=== PATIENT | female | born 1995 | race Caucasian/White ===

== ENCOUNTER 2018-01-23 20:17 | Emergency (ER) | payer BC ==
--- NOTE | 2018-01-23 22:20 | ER Document Report ---
ED Medical Screen (RME) - General Chief Complaint: Lower Abdominal Pain Stated Complaint: ABDOMINAL PAIN Time Seen by Provider: 01/23/18 22:18 Mode of Arrival: Ambulatory Information source: Patient Notes: Patient presents complaining of 5 day history of suprapubic pain. Patient states pain has been constant but occasionally is sharp in nature. Patient states that up until yesterday she had diarrhea multiple episodes each day. Patient states symptoms did start after eating at [employer] restaurant. Patient denies any fever, nausea, vomiting, urinary symptoms or vaginal discharge. Patient states she took a negative home test, although is 1 week late. I have greeted and performed a rapid initial assessment of this patient. A comprehensive ED assessment and evaluation of the patient, analysis of test results and completion of the medical decision making process will be conducted by additional ED providers. TRAVEL OUTSIDE OF THE [place] IN LAST 30 DAYS: No - Related Data Allergies/Adverse Reactions: codeine Allergy (Verified 01/23/18 20:35) Penicillins Allergy (Verified 01/23/18 20:35) Physical Exam - Vital signs Vitals: Temp Pulse Resp BP Pulse Ox 98.3 F 77 18 119/76 96 01/23/18 20:38 01/23/18 20:38 01/23/18 20:38 01/23/18 20:38 01/23/18 20:38 - Abdominal Tenderness: Tender - Suprapubic Course - Vital Signs Vital signs: Temp Pulse Resp BP Pulse Ox 98.3 F 77 18 119/76 96 01/23/18 20:38 01/23/18 20:38 01/23/18 20:38 01/23/18 20:38 01/23/18 20:38
[2018-01-23 22:49] LABS: ABSOLUTE EOSINOPHILS # (AUTO) 0.2 10^3/uL (0.0-0.6); ABSOLUTE LYMPHOCYTES (AUTO) 2.9 10^3/uL (0.5-4.7); ABSOLUTE MONOCYTES (AUTO) 0.6 10^3/uL (0.1-1.4); ABSOLUTE NEUT (AUTO) 1.7 10^3/uL (1.7-8.2); BASOPHILS % (AUTO) 0.3 % (0-2); EOSINOPHILS % (AUTO) 3.1 % (0-6); HEMOGLOBIN 12.6 g/dL (12.0-15.5); LYMPHOCYTES % (AUTO) 53.9 % (13-45); MEAN CORPUSCULAR HEMOGLOBIN 29.7 pg (27.0-33.4); MEAN CORPUSCULAR VOLUME 87 fl (80-97); MONOCYTES % (AUTO) 10.7 % (3-13); PLATELET COUNT 244 10^3/uL (150-450); RED BLOOD COUNT 4.24 10^6/uL (3.72-5.28); RED CELL DISTRIBUTION WIDTH 13.3 % (11.5-14.0); TOTAL CELLS COUNTED % (AUTO) 100 %; WHITE BLOOD COUNT 5.4 10^3/uL (4.0-10.5)
[2018-01-23 23:04] LABS: ALANINE AMINOTRANSFERASE 24 U/L (9-52); ALBUMIN 4.4 g/dL (3.5-5.0); ALKALINE PHOSPHATASE 48 U/L (38-126); ANION GAP 8 (5-19); ASPARTATE AMINO TRANSFERASE 20 U/L (14-36); BILIRUBIN,TOTAL 0.6 mg/dL (0.2-1.3); BLOOD UREA NITROGEN 11 mg/dL (7-20); CALCIUM 9.7 mg/dL (8.4-10.2); CARBON DIOXIDE 27 mmol/L (22-30); CHLORIDE 104 mmol/L (98-107); GLUCOSE 85 mg/dL (75-110); POTASSIUM 3.9 mmol/L (3.6-5.0); SODIUM 139.2 mmol/L (137-145); TOTAL PROTEIN 7.1 g/dL (6.3-8.2)
[2018-01-24 00:23] LABS: AMORPHOUS SEDIMENT,URINE 1+ /HPF; APPEARANCE,URINE TURBID; BILIRUBIN,URINE NEGATIVE (NEGATIVE); COLOR,URINE YELLOW; GLUCOSE, URINE NEGATIVE (NEGATIVE); KETONES,URINE NEGATIVE (NEGATIVE); LEUKOCYTE ESTERASE,URINE NEGATIVE (NEGATIVE); NITRITE,URINE NEGATIVE (NEGATIVE); PROTEIN,URINE NEGATIVE (NEGATIVE); URINE SPECIFIC GRAVITY 1.019; UROBILINOGEN,URINE NEGATIVE mg/dL (<2.0)
--- NOTE | 2018-01-24 00:26 | ER Document Report ---
ED GI/ - General Chief Complaint: Lower Abdominal Pain Stated Complaint: ABDOMINAL PAIN Time Seen by Provider: 01/23/18 22:18 Mode of Arrival: Ambulatory Information source: Patient TRAVEL OUTSIDE OF THE [place] IN LAST 30 DAYS: No - HPI Patient complains to provider of: Abdominal pain, Diarrhea Onset: Last week Timing/Duration: Sudden Quality of pain: Cramping Severity at maximum: Moderate Severity in ED: Mild Context: Bad food - POSSIBLY @ [employer] ELSEWHERE Location: Other - [facility] Vaginal bleeding (Compared to normal period): None Menstrual period history: denies: Abnormal, Irregular, - ON OCP's Sexual history: Active, control pills Associated symptoms: Diarrhea. denies: Chills, Fever, Urinary frequency, Urinary urgency, Vaginal discharge, Vomiting Exacerbated by: Food Relieved by: Denies Similar symptoms previously: No Recently seen / treated by doctor: No - Related Data Allergies/Adverse Reactions: codeine Allergy (Verified 01/23/18 20:35) Penicillins Allergy (Verified 01/23/18 20:35) Past Medical History - General Information source: Patient - Social History Smoking Status: Unknown if Ever Smoked Frequency of alcohol use: None Drug Abuse: None Lives with: Spouse/Significant other Family History: Reviewed & Not Pertinent Patient has suicidal ideation: No Patient has homicidal ideation: No - Past Medical History Cardiac Medical History: Reports: None Pulmonary Medical History: Reports: None EENT Medical History: Reports: None Neurological Medical History: Reports: None Endocrine Medical History: Reports: None Renal/ Medical History: Reports: None Malignancy Medical History: Reports: None GI Medical History: Reports: None Musculoskeltal Medical History: Reports None Psychiatric Medical History: Reports: None Traumatic Medical History: Reports: None Past Surgical History: Reports: Hx Tonsillectomy Review of Systems - Review of Systems Constitutional: No symptoms reported. denies: Chills, Fever EENT: No symptoms reported Cardiovascular: No symptoms reported Respiratory: No symptoms reported Gastrointestinal: See HPI Genitourinary: No symptoms reported Female Genitourinary: No symptoms reported Musculoskeletal: No symptoms reported Skin: No symptoms reported Neurological/Psychological: No symptoms reported Physical Exam - Vital signs Vitals: Temp Pulse Resp BP Pulse Ox 98.3 F 77 18 119/76 96 01/23/18 20:38 01/23/18 20:38 01/23/18 20:38 01/23/18 20:38 01/23/18 20:38 Interpretation: Normal. No: Hypotensive, Tachycardic, Tachypneic, Febrile - General General appearance: Appears well, Alert In distress: None - HEENT Head: Normocephalic Eyes: Normal Conjunctiva: Normal Ears: Normal Nasal: Normal Mouth/Lips: Normal Mucous membranes: Normal - Respiratory Respiratory status: No respiratory distress - Cardiovascular Rhythm: Regular - Abdominal Inspection: Normal Distension: No distension Bowel sounds: Normal Tenderness: Tender - SLIGHT, HYPOGASTRIC - Back Back: Normal - Extremities General upper extremity: Normal inspection General lower extremity: Normal inspection - Neurological Neuro grossly intact: Yes Cognition: Normal Orientation: AAOx4 - Psychological Associated symptoms: Normal affect, Normal mood - Skin Skin Temperature: Warm Skin Moisture: Dry Skin Color: Normal Skin Turgor: Elastic Course - Vital Signs Vital signs: Temp Pulse Resp BP Pulse Ox 98.3 F 77 18 119/76 96 01/23/18 20:38 01/23/18 20:38 01/23/18 20:38 01/23/18 20:38 01/23/18 20:38 - Laboratory Result Diagrams: 01/23/18 22:36 01/23/18 22:36 Laboratory results interpreted by me: 01/23/18 22:36 Seg Neutrophils % 32.0 L Lymphocytes % 53.9 H Discharge - Discharge Clinical Impression: Abdominal pain Qualifiers: Abdominal location: lower abdomen, unspecified Qualified Code(s): R10.30 - Lower abdominal pain, unspecified Diarrhea Qualifiers: Diarrhea type: unspecified type Qualified Code(s): R19.7 - Diarrhea, unspecified Condition: Stable Disposition: HOME, SELF-CARE Instructions: Abdominal Pain ([facility]), Antispasmodics ([facility]), Diarrhea, Nonspecific ([facility]) Additional Instructions: DRINK PLENTY OF FLUIDS. YOU MAY TAKE DICYCLOMINE DIRECTED, IF NEEDED FOR CONTROL OF CRAMPS. BRING A STOOL SPECIMEN IN PROPER CONTAINER TO THE LAB WHEN YOU CAN PRODUCE ONE. RETURN TO E.R. OR FOLLOW UP WITH YOUR PRIMARY CARE PROVIDER IF PROBLEMS. Prescriptions: Dicyclomine HCl [Bentyl 10 mg Capsule] 1 cap PO QID PRN #10 cap PRN Reason: Abdominal Cramping Forms: Follow-Up Laboratory Testing
[2018-01-24 01:44] LABS: CHLAM PCR NOT DETECTED (NOT DETECT); GON PCR NOT DETECTED (NOT DETECT)
[2018-01-24 03:06] VITALS: BP 120/74
== END 2018-01-24 03:05 | disposition home or self-care (01) ==
LOC: ER 20:17
DX: R10.30 Lower abdominal pain, unspecified (principal); R19.7 Diarrhea, unspecified
CPT/HCPCS: 36415; 80053; 81001; 84703; 85025; 87491; 87591; 99283

== ENCOUNTER 2018-01-24 22:10 | Emergency (ER) | payer BC ==
[2018-01-24 22:54] LABS: APPEARANCE,URINE CLEAR; BILIRUBIN,URINE NEGATIVE (NEGATIVE); COLOR,URINE STRAW; GLUCOSE, URINE NEGATIVE (NEGATIVE); KETONES,URINE NEGATIVE (NEGATIVE)
[2018-01-24 22:55] LABS: LEUKOCYTE ESTERASE,URINE NEGATIVE (NEGATIVE); NITRITE,URINE NEGATIVE (NEGATIVE); PROTEIN,URINE NEGATIVE (NEGATIVE); UROBILINOGEN,URINE NEGATIVE mg/dL (<2.0)
[2018-01-25] MEDS ORDERED: ACETAMINOPHEN 325 MG TABLET PO ONE (00:07)
--- NOTE | 2018-01-25 00:07 | ER Document Report ---
ED Medical Screen (RME) - General Chief Complaint: Abdominal Pain Stated Complaint: ABDOMINAL PAIN Time Seen by Provider: 01/24/18 23:52 Notes: Patient is a 22-year-old female who returns to the emergency department after being evaluated last evening complaining of right lower pelvic/right lower quadrant abdominal pain for the past 6 days. She states that this all started after she ate at [employer] where she had a well-done Chao with a fried egg on it. She admits to loose stools for 4 days and has not had a bowel movement since. She states that she was seen here last evening and given Bentyl which she states did not help the pain and only made her nauseous. She denies any fevers or chills, nausea or vomiting, pyuria, hematuria, vaginal discharge. TRAVEL OUTSIDE OF THE [place] IN LAST 30 DAYS: No - Related Data Allergies/Adverse Reactions: codeine Allergy (Verified 01/23/18 20:35) Penicillins Allergy (Verified 01/23/18 20:35) Past Medical History - Social History Chew tobacco use (# tins/day): No Frequency of alcohol use: Rare Drug Abuse: None Renal/ Medical History: Denies: Hx Peritoneal Dialysis Past Surgical History: Reports: Hx Tonsillectomy Physical Exam - Vital signs Vitals: Temp Pulse Resp BP Pulse Ox 98.2 F 66 18 112/73 97 01/24/18 22:20 01/24/18 22:20 01/24/18 22:20 01/24/18 22:20 01/24/18 22:20 - Notes Notes: PHYSICAL EXAM GENERAL: Alert, interacts well. ABDOMEN: Soft, nondistended, focal right lower plevic tenderness wihtout rebound. No guarding, rebound, or rigidity.. EXTREMITIES: Moves all 4 extremities spontaneously. No edema, radial and dorsalis pedis pulses 2/4 bilaterally. No cyanosis. NEUROLOGICAL: Alert and oriented x4. Normal speech. PSYCH: Normal affect, normal mood. SKIN: Warm, dry, normal turgor. No rashes or lesions noted. Course - Vital Signs Vital signs: Temp Pulse Resp BP Pulse Ox 98.2 F 66 18 112/73 97 01/24/18 22:20 01/24/18 22:20 01/24/18 22:20 01/24/18 22:20 01/24/18 22:20
--- NOTE | 2018-01-25 01:06 | ER Document Report ---
ED General - General Chief Complaint: Abdominal Pain Stated Complaint: ABDOMINAL PAIN Time Seen by Provider: 01/24/18 23:52 Notes: Patient is a 22-year-old female presents with complaint of abdominal pain that is in the suprapubic region. She says it has been constant for a week but intermittently she has a sharp pain. She says the pain originally started after eating at [employer] 1 week ago. At that time she had diarrhea. She had diarrhea for several days. Diarrhea stopped and now she has not had a bowel movement for several days and now has the pain in the suprapubic region. No dysuria. She was seen here yesterday. She had a pelvic exam as well as blood work and urinalysis. All this was negative she was sent home with Jolene. Jolene is not helping and therefore she is come back to the ER. On the reason for visit she wrote possible C. difficile. She says the reason why she wrote this is because a nurse yesterday told her she might have C. difficile. Patient has not had any exposure to a retirement or hospital other than her visit yesterday. She has not been around anybody with C. difficile. She has not had any antibiotic use. TRAVEL OUTSIDE OF THE [place] IN LAST 30 DAYS: No - Related Data Allergies/Adverse Reactions: codeine Allergy (Verified 01/23/18 20:35) Penicillins Allergy (Verified 01/23/18 20:35) Past Medical History - Social History Smoking Status: Current Every Day Smoker Chew tobacco use (# tins/day): No Frequency of alcohol use: Rare Drug Abuse: None Family History: Reviewed & Not Pertinent Patient has suicidal ideation: No Patient has homicidal ideation: No Renal/ Medical History: Denies: Hx Peritoneal Dialysis Past Surgical History: Reports: Hx Tonsillectomy Review of Systems - Review of Systems Notes: My Normal Review Basic REVIEW OF SYSTEMS: CONSTITUTIONAL : Denies fever, chills, or sweats. Denies recent illness. RESPIRATORY: Denies cough, cold, or chest congestion. Denies shortness of breath, difficulty breathing, or wheezing. GASTROINTESTINAL: Lower abdominal pain. Recently had diarrhea but that has since changed to constipation. GENITOURINARY: Denies difficulty urinating, painful urination, burning, frequency, or blood in urine. FEMALE GENITOURINARY: Denies vaginal bleeding, abnormal or irregular periods. LMP: MUSCULOSKELETAL: Denies neck or back pain or joint pain or swelling. SKIN: Denies rash or skin lesions. NEUROLOGICAL: Denies altered mental status or loss of consciousness. Denies headache. Denies weakness or paralysis or loss of use of either side. Denies problems with gait or speech. Denies sensory or motor loss. ALL OTHER SYSTEMS REVIEWED AND NEGATIVE. Physical Exam - Vital signs Vitals: Temp Pulse Resp BP Pulse Ox 98.2 F 66 18 112/73 97 01/24/18 22:20 01/24/18 22:20 01/24/18 22:20 01/24/18 22:20 01/24/18 22:20 - Notes Notes: General Appearance: Well nourished, alert, cooperative, no acute distress, no obvious discomfort. Well-appearing. Vitals: reviewed, See vital signs table. Head: no swelling or tenderness to the head Eyes: PERRL, EOMI, Conjuctiva clear Mouth: No decreasd moisture Lungs: No wheezing, No rales, No rhonci, No accessory muscle use, good air exchange bilaterally. Heart: Normal rate, Regular rythm, No murmur, no rub Abdomen: Normal BS, soft, No rigidity, mild suprapubic abdominal tenderness to palpation, No guarding, no rebound, no abdominal masses, no organomegaly Extremities: strength 5/5 in all extremities, good pulses in all extremities, no swelling or tenderness in the extremities, no edema. Skin: warm, dry, appropriate color, no rash Neuro: speech clear, oriented x 3, normal affect, responds appropriately to questions. Course - Re-evaluation Re-evalutation: 01/25/18 06:19 Patient had negative gonorrhea and Chlamydia testing yesterday. She has no pelvic pain and no abnormal vaginal discharge or bleeding therefore I do not think she needs pelvic exam. She does have pain in the suprapubic region that is constant with intermittent sharp pains consistent with what sounds to be bowel cramping. She recently had diarrhea on this but over last several days has not had a bowel movement. On exam she does have some stool in this area. She does not have any fevers. Blood work yesterday was completely normal. Informed her I suspect that her pain could be related to gas pain related to retained stool. Will place her on MiraLAX and Colace. I did offer to do an enema here but she refused. Informed her that she does not have improvement of her pain or is having bowel movements after 2 days that she needs return to the ER for evaluation. She is to return to ER immediately if she has worsening pain , fevers, vomiting, or she feels unwell. Patient agrees with plan will be discharged home. Dictation of this chart was performed using voice recognition software; therefore, there may be some unintended grammatical errors. - Vital Signs Vital signs: Temp Pulse Resp BP Pulse Ox 97.9 F 57 L 16 103/63 99 01/25/18 02:06 01/25/18 02:06 01/25/18 02:06 01/25/18 02:06 01/25/18 02:06 Discharge - Discharge Clinical Impression: Abdominal pain Qualifiers: Abdominal location: lower abdomen, unspecified Qualified Code(s): R10.30 - Lower abdominal pain, unspecified Condition: Good Disposition: HOME, SELF-CARE Additional Instructions: Please take Miralax and Docusate sodium (Colace) until you have multiple bowel movements or loose stools. Please follow up with your doctor or return to the ER in 2 days for reevaluation if you are still having pain despite having a bowel movements. Please return to the ER immeidately if you have worsneing pain , fever,s vomiting, or feel unwell. Prescriptions: Docusate Sodium 100 mg PO BID #14 capsule Polyethylene Glycol 3350 [Miralax] 1 cap PO DAILY #527 powder
[2018-01-25 02:08] VITALS: BP 103/63
--- NOTE | 2018-01-25 02:11 | RADIOLOGY REPORT (SQ) ---
EXAM DESCRIPTION: ABDOMEN 2 VIEWS CLINICAL HISTORY: 22 years, Female, lower abdominal pain COMPARISON: None. NUMBER OF VIEWS: 2 FINDINGS: Intestinal gas pattern is within normal limits. No suspicious calcification. Grossly intact skeletal structures. IMPRESSION: No acute findings.
== END 2018-01-25 02:15 | disposition home or self-care (01) ==
LOC: ER 22:10
DX: K59.00 Constipation, unspecified (principal); R10.30 Lower abdominal pain, unspecified; F17.200 Nicotine dependence, unspecified, uncomplicated; Z88.5 Allergy status to narcotic agent; Z88.0 Allergy status to penicillin
CPT/HCPCS: 74019; 81001; 99284